=== PATIENT | male | born 1955 | race Two or more races ===

== ENCOUNTER 2021-10-27 04:09 | Day surgery (SDC) | payer BC, OTHER ==
[2021-10-22 14:18] VITALS: BMI 33.7
[2021-10-27 13:12] VITALS: BP 130/71; PULSE 75; TEMP 97.5
[2021-10-27] MEDS ORDERED: BUPIVACAINE HCL/PF 0.5% (5MG/ML) 10 ML VIAL ONE (15:14)
== END 2021-10-27 16:08 | disposition home or self-care (01) ==
LOC: JASU-SURG 04:09
PROVIDERS: ATTEND Urology
DX: Z53.8 Procedure and treatment not carried out for other reasons (principal)